=== PATIENT | female | born 1965 | race African-American/Black ===

== ENCOUNTER 2018-05-12 07:22 | Emergency (ER) | payer MEDICAID ==
[~2018-05-12] VITALS: Ht 165.1 cm; Wt 60.0 kg
[~2018-05-12 07:22] MED LIST: HYDR-523 PO
[2018-05-12] MEDS ORDERED: MORPHINE SULFATE 4 MG/ML CPJ (NOT FOR IM USE) IV ONE (08:30)
[2018-05-12] MEDS ORDERED: ONDANSETRON HCL 4MG/2ML INJ IV ONE (13:30)
[2018-05-12] MEDS ORDERED: ETOMIDATE 2MG/ML 10ML VIAL IV ONE ×2 (13:30→16:00)
[2018-05-12] MEDS ORDERED: KETAMINE HCL 50 MG/ML 10ML IV ONE (15:30)
[2018-05-12] MEDS ORDERED: PROPOFOL 200MG/20ML VIAL IV ONE (15:30)
[2018-05-12 19:01] VITALS: BP 123/66
== END 2018-05-12 19:09 | disposition home or self-care (01) ==
LOC: ER 07:22
DX: S43.085A Other dislocation of left shoulder joint, initial encounter (principal); F32.9 Major depressive disorder, single episode, unspecified; X58.XXXA Exposure to other specified factors, initial encounter; Y93.89 Activity, other specified; Y92.89 Other specified places as the place of occurrence of the external cause; Y99.8 Other external cause status; Z98.890 Other specified postprocedural states
CPT/HCPCS: 23650; 73030; 93005; 96374; 96375; 99152; 99285; J2270; J2405; J3490